=== PATIENT | female | born 1940 | race Two or more races ===

== ENCOUNTER 2018-07-29 13:12 | Emergency (ER) | payer MEDICARE, MEDICAID ==
[~2018-07-29] VITALS: Ht 162.6 cm; Wt 60.0 kg
[2018-07-29] MEDS ORDERED: KETOROLAC 30MG/ML VIAL IM ONE (14:00)
[2018-07-29] MEDS ORDERED: ACETAMINOPHEN 325MG TABLET PO ONE (16:00)
[2018-07-29 16:43] VITALS: BP 145/64
== END 2018-07-29 16:43 | disposition home or self-care (01) ==
LOC: ER 13:12
DX: S32.029A Unspecified fracture of second lumbar vertebra, initial encounter for closed fracture (principal); W18.39XA Other fall on same level, initial encounter; Y93.89 Activity, other specified; Y92.811 Bus as the place of occurrence of the external cause; I10 Essential (primary) hypertension; E11.9 Type 2 diabetes mellitus without complications; Z88.0 Allergy status to penicillin; Z88.5 Allergy status to narcotic agent
CPT/HCPCS: 72100; 96372; 99283; J1885